=== PATIENT | male | born 1955 | race Caucasian/White ===

== ENCOUNTER 2017-05-22 11:00 | Inpatient (IN) | payer MEDICAID ==
[~2017-05-22] VITALS: Ht 172.7 cm; Wt 81.3 kg
[2017-05-22 11:17] VITALS: Ht 172.7 cm; Wt 81.3 kg
[2017-05-22 11:49] LABS: BASOPHIL % 0.3 % (0-2); PLATELET COUNT 328 x10^3mcL (130-400); RED CELL DISTRIBUTION WIDTH 13.5 % (11.5-14.5)
[2017-05-22 12:02] LABS: CALCIUM 8.5 mg/dL (8.5-10.1); CARBON DIOXIDE 28.4 mmol/L (21-32); CHLORIDE SERUM 102 mmol/L (98-107); CREATININE SERUM 0.9 mg/dL (0.7-1.3); GFR1 > 60 mL/min; GLUCOSE SERUM 102 mg/dL (74-106); POTASSIUM SERUM 3.3 mmol/L (3.5-5.1); SODIUM SERUM 140 mmol/L (136-145)
[2017-05-22 12:06] LABS: ALKALINE PHOSPHATASE 71 U/L (46-116); ALT/SGPT 19 U/L (16-63); AST/SGOT 16 U/L (15-37); BILIRUBIN TOTAL 0.44 mg/dL (0.20-1.00); LIPASE 59 IU/L (73-393); TOTAL PROTEIN, SERUM 7.9 g/dL (6.4-8.2)
[2017-05-22 12:10] LABS: ALBUMIN 3.2 g/dL (3.4-5.0)
[2017-05-22 15:32] LABS: RED BLOOD CELLS 4.54 M/mm3 (4.52-5.90)
[2017-05-22 15:35] LABS: T3 TOTAL 0.72 ng/mL
[2017-05-22 16:01] LABS: FREE T4 2.29 ng/dL (0.76-1.46); FREE THYROXINE INDEX 3.4 ug/dL (1.4-4.5); T4(THYROXINE) 7.3 ug/dL (4.7-13.3)
[2017-05-22 16:07] LABS: MAGNESIUM 2.1 mg/dL (1.8-2.4); PHOSPHOROUS 3.7 mg/dL (2.5-4.9)
[2017-05-22 16:08] LABS: CHOLESTEROL/HDL RATIO 2.1
[2017-05-22 16:10] VITALS: BP 162/101
[2017-05-22 16:34] LABS: microscopic required? NO
[2017-05-22 16:58] LABS: urine erythrocyte NEGATIVE (NEGATIVE)
[2017-05-22 17:12] LABS: AMPHETAMINE QUAL UR NONE DETECTED (NEG <=1000)
[2017-05-22 18:02] LABS: IRON 18 ug/dL (65-170); TOTAL IRON BINDING CAPACITY 304 ug/dL (250-450)
[2017-05-22 18:42] VITALS: BP 134/82
[2017-05-22 20:27] VITALS: BP 137/88
[2017-05-23 06:11] VITALS: BP 114/87
[2017-05-23 06:57] LABS: BASOPHIL % 0.2 % (0-2); PLATELET COUNT 322 x10^3mcL (130-400); RED CELL DISTRIBUTION WIDTH 13.6 % (11.5-14.5)
[2017-05-23 07:06] LABS: CALCIUM 8.1 mg/dL (8.5-10.1); CARBON DIOXIDE 23.1 mmol/L (21-32); CHLORIDE SERUM 107 mmol/L (98-107); CREATININE SERUM 0.7 mg/dL (0.7-1.3); GFR1 > 60 mL/min; GLUCOSE SERUM 100 mg/dL (74-106); PHOSPHOROUS 3.9 mg/dL (2.5-4.9); POTASSIUM SERUM 3.8 mmol/L (3.5-5.1); SODIUM SERUM 142 mmol/L (136-145)
[2017-05-23 08:10] VITALS: BP 122/81
[2017-05-23 12:39] VITALS: BP 143/91
[2017-05-23 17:39] VITALS: BP 156/86
[2017-05-23 20:40] VITALS: BP 127/82
[2017-05-24 06:05] VITALS: BP 130/85
[2017-05-24 06:53] LABS: BASOPHIL % 0.2 % (0-2); PLATELET COUNT 310 x10^3mcL (130-400); RED CELL DISTRIBUTION WIDTH 13.6 % (11.5-14.5)
[2017-05-24 06:59] LABS: CALCIUM 7.8 mg/dL (8.5-10.1); CARBON DIOXIDE 26.6 mmol/L (21-32); CHLORIDE SERUM 108 mmol/L (98-107); CREATININE SERUM 0.8 mg/dL (0.7-1.3); GFR1 > 60 mL/min; GLUCOSE SERUM 87 mg/dL (74-106); PHOSPHOROUS 3.2 mg/dL (2.5-4.9); POTASSIUM SERUM 3.7 mmol/L (3.5-5.1); SODIUM SERUM 141 mmol/L (136-145)
[2017-05-24 09:50] VITALS: BP 143/96
[2017-05-24] MEDS ORDERED: CIPRO500 MG PO (10:17)
[2017-05-24] MEDS ORDERED: LAC PO (10:23)
[2017-05-24] MEDS ORDERED: FLA500 PO (10:23)
[2017-05-24 12:49] VITALS: BP 143/96
[2017-05-24 14:15] VITALS: BP 137/88
== END 2017-05-24 14:52 | disposition home or self-care (01) | DRG 244 ==
LOC: ED 11:00 → DU 14:10
PROVIDERS: Emergency Medicine; Family Medicine
DX: K57.32 Diverticulitis of large intestine without perforation or abscess without bleeding (principal); E44.1 Mild protein-calorie malnutrition; E87.6 Hypokalemia; D64.9 Anemia, unspecified; Z87.891 Personal history of nicotine dependence; Z68.27 Body mass index [BMI] 27.0-27.9, adult
CPT/HCPCS: 83880; 84439; J0360; J1885; J1956; J3490; J7030; Q0092; Q0162; Q9966; Q9967